=== PATIENT | male | born 1955 | race African-American/Black ===

== ENCOUNTER 2016-11-17 09:26 | Outpatient (CLI) | payer MEDICARE, MEDICAID ==
[2016-11-17 09:56] LABS: #Basophils 0.2 thou/uL (0.0-0.2); #Eosinphils 0.1 thou/uL (0.0-0.7); #Lymphocytes 2.5 thou/uL (1.20-3.40); #Monocytes 0.4 thou/uL (0.11-0.59); #Neutrophils 3.7 thou/uL (1.40-6.50); %Basophils 2.5 % (0.0-1.0); %Eosinophils 1.7 % (0.0-10.0); %Lymphocytes 35.8 % (21.0-51.0); %Monocytes 6.1 % (0.0-10.0); %Neutrophils 53.9 % (42.0-75.0); Hemoglobin 13.3 g/dL (14.0-18.0); Mean Corpuscular HGB CONC 32.6 g/dL (32.0-36.0); Mean Corpuscular Hemoglobin 26.8 pg (27.0-31.0); Mean Corpuscular Volume 82.4 fl (80.0-94.0); Platelet Count 299 thou/uL (130-400); RBC Distribution Width 13.9 % (11.5-14.5); Red Blood Cell (RBC) Count 4.95 mill/uL (4.70-6.10); White Blood Cell (WBC) Count 6.9 thou/uL (4.8-10.8)
[2016-11-17 10:23] LABS: ALT (SGPT) 20 U/L (0-55); Alkaline Phosphatase 58 U/L (40-150)
[2016-11-17 12:02] LABS: Carbon Dioxide 23 mmol/L (23-31); Chloride 104 mmol/L (98-107); Potassium 4.5 mmol/L (3.5-5.1); Sodium 139 mmol/L (136-145)
[2016-11-17 12:06] LABS: Albumin 4.2 g/dL (3.4-4.8); Anion Gap 17 mmol/L (10-20); BUN (Urea Nitrogen) 15 mg/dL (8.4-25.7); Bilirubin, Total 0.4 mg/dL (0.2-1.2); Calc. Creatinine Clearance 0 mL/min (70-130); Calcium 9.4 mg/dL (7.8-10.44); Cholesterol 168 mg/dL (< 200 Desired); Estimated GFR-MDRD Greater than 90; Globulin 3.5 g/dL (2.4-3.5); Glucose 95 mg/dL (80-115); Protein, Total 7.7 g/dL (5.8-8.1)
[2016-11-17 12:07] LABS: AST (SGOT) 33 U/L (5-34); HDL Cholesterol 40 mg/dL (>60 Neg Risk); Triglycerides 112 mg/dL (Less than 150)
[2016-11-17 12:09] LABS: Cardiac Risk 4.2 (Less than 4.5); LDL Cholesterol, Calculated 123 mg/dL
== END 2016-11-17 09:27 | disposition home or self-care (01) ==
LOC: MADLABBHPM 09:26
PROVIDERS: ATTEND Obstetrics & Gynecology
DX: E78.5 Hyperlipidemia, unspecified (principal); I10 Essential (primary) hypertension
CPT/HCPCS: 36415; 80053; 80061; 85025

== ENCOUNTER 2017-01-01 11:11 | Emergency (ER) | payer MEDICARE, MEDICAID ==
[2017-01-01] MEDS ORDERED: Amoxicillin/Potassium Clav 875 MG TAB ONE (12:22)
--- NOTE | 2017-01-01 14:35 | RAD ---
LEFT FIRST TOE THREE VIEWS HISTORY: Pain. COMPARISON: None. FINDINGS: There is mild degenerative change of the first interphalangeal joint space. No fracture. No cortic al irregularity or periosteal reaction. IMPRESSION: Mild degenerative change in the first interphalangeal joint space. POS: [facility]
== END 2017-01-01 13:38 | disposition home or self-care (01) ==
LOC: MADERS 11:11
DX: L03.032 Cellulitis of left toe (principal); L02.612 Cutaneous abscess of left foot; E78.5 Hyperlipidemia, unspecified; I10 Essential (primary) hypertension; M10.9 Gout, unspecified; Z79.899 Other long term (current) drug therapy
CPT/HCPCS: 87070; 87077; 87186; 87205

== ENCOUNTER 2019-05-16 14:30 | Outpatient (CLI) | payer MEDICARE, MEDICAID ==
[2019-05-16 14:54] LABS: ALT (SGPT) 29 U/L (8-55); AST (SGOT) 26 U/L (5-34); Albumin 4.6 g/dL (3.4-4.8); Alkaline Phosphatase 57 U/L (40-110); Anion Gap 16 mmol/L (10-20); BUN (Urea Nitrogen) 13 mg/dL (8.4-25.7); Bilirubin, Total 0.4 mg/dL (0.2-1.2); Calc. Creatinine Clearance 0 mL/min (70-130); Calcium 9.8 mg/dL (7.8-10.44); Carbon Dioxide 25 mmol/L (23-31); Chloride 102 mmol/L (98-107); Estimated GFR-MDRD 86; Globulin 4.4 g/dL (2.4-3.5); Glucose 175 mg/dL (80-115); Potassium 3.6 mmol/L (3.5-5.1); Sodium 139 mmol/L (136-145); Uric Acid 5.1 mg/dL (3.5-7.2)
[2019-05-16 14:59] LABS: Band 2 % (5-11); Hemoglobin 13.6 g/dL (14.0-18.0); Lymphocytes 26 % (21-51); MDiff Complete? YES; Mean Corpuscular HGB CONC 30.8 g/dL (32.0-36.0); Mean Corpuscular Hemoglobin 26.8 pg (27.0-31.0); Mean Corpuscular Volume 86.9 fL (78.0-98.0); Mean Platelet Volume 7.6 fL (7.4-10.4); Monocytes 4 % (0-10); Myelocyte 1 % (0-0); Neutrophil 53 % (42-75); Platelet Count 291 thou/uL (130-400); Platelet Morphology Comment Appears Adequate; RBC Distribution Width 15.5 % (11.5-14.5); RBC Morphology Normal; Reactive Lymphocytes 14 % (0-10); Red Blood Cell (RBC) Count 5.09 mill/uL (4.70-6.10); White Blood Cell (WBC) Count 7.3 thou/uL (4.8-10.8)
== END 2019-05-16 14:31 | disposition home or self-care (01) ==
LOC: MADLAB 14:30
PROVIDERS: ATTEND Family Medicine
DX: E11.9 Type 2 diabetes mellitus without complications (principal); I10 Essential (primary) hypertension; M1A.9XX0 Chronic gout, unspecified, without tophus (tophi)
CPT/HCPCS: 36415; 80053; 83036; 83880; 84550; 85025

== ENCOUNTER 2019-11-30 13:10 | Emergency (ER) | payer MEDICARE, MEDICAID ==
--- NOTE | 2019-11-30 14:33 | RAD ---
EXAM: CHEST ONE VIEW HISTORY: Nausea and vomiting. COMPARISON: 08/06/2008. FINDINGS: Cardiac silhouette is magnified by projection but does appear mildly enlarged. Stable from prior exam . Pulmonary vasculature is accentuated due to portable technique as well. Right lung apex is obscured due to patient's overlying jaw and mandible. Otherwise, no consolidation or pleural fluid is appreciated on this exam. Chest is overall stable compared to the prior exam. Mild degenerative changes seen in the spine. IMPRESSION: 1. No acute cardiopulmonary process. 2. Mild cardiomegaly.
[2019-11-30 16:38] LABS: Bilirubin Large (Negative); Blood, Urine Trace (Negative); Glucose, Urine (Dipstick) 100 mg/dL (Negative); Leukocyte Negative (Negative); Nitrite Negative (Negative); Protein, Urine (Dipstick) > or equal to 300 mg/dL (Neg-Trace); Urobilinogen > or = 8.0 mg/dL (Less than 2)
[2019-11-30] MEDS ORDERED: Ondansetron ODT 4 MG TAB ONE (16:41)
[2019-11-30 16:44] LABS: Clarity Hazy (Clear)
[2019-11-30 16:46] LABS: Bacteria/HPF 1+ HPF (None Seen); RBC/HPF 0-3 HPF (0-3); Squamous Epithelial 0-3 HPF (0-3); WBC/HPF 0-3 HPF (0-3)
[2019-11-30 17:02] LABS: #Basophils 0.1 thou/uL (0.0-0.2); #Lymphocytes 1.8 thou/uL (1.20-3.40); #Monocytes 0.4 thou/uL (0.11-0.59); #Neutrophils 6.3 thou/uL (1.40-6.50); %Eosinophils 0.2 % (0.0-10.0); %Lymphocytes 20.7 % (21.0-51.0); %Monocytes 4.2 % (0.0-10.0); %Neutrophils 73.9 % (42.0-75.0); Hemoglobin 13.5 g/dL (14.0-18.0); Mean Corpuscular HGB CONC 30.1 g/dL (32.0-36.0); Mean Corpuscular Hemoglobin 26.9 pg (27.0-31.0); Mean Corpuscular Volume 89.4 fL (78.0-98.0); Mean Platelet Volume 7.8 fL (7.4-10.4); Platelet Count 389 thou/uL (130-400); Red Blood Cell (RBC) Count 5.01 mill/uL (4.70-6.10); White Blood Cell (WBC) Count 8.5 thou/uL (4.8-10.8)
[2019-11-30 17:25] LABS: ALT (SGPT) 636 U/L (8-55); AST (SGOT) 767 U/L (5-34); Albumin 4.4 g/dL (3.4-4.8); Alkaline Phosphatase 265 U/L (40-110); Anion Gap 23 mmol/L (10-20); BUN (Urea Nitrogen) 7 mg/dL (8.4-25.7); Bilirubin, Total 2.6 mg/dL (0.2-1.2); Calc. Creatinine Clearance 0 mL/min (70-130); Calcium 9.6 mg/dL (7.8-10.44); Carbon Dioxide 20 mmol/L (23-31); Chloride 103 mmol/L (98-107); Estimated GFR-MDRD Greater than 90; Globulin 4.9 g/dL (2.4-3.5); Glucose 168 mg/dL (80-115); Lipase 194 U/L (8-78); Potassium 3.9 mmol/L (3.5-5.1); Protein, Total 9.3 g/dL (5.8-8.1); Sodium 142 mmol/L (136-145)
[2019-11-30] MEDS ORDERED: Lidocaine 1% 20 ML MDV ONE (18:11)
[2019-11-30] MEDS ORDERED: cefTRIAXone\\ROCEPHIN 1 GM VIAL ONE (18:11)
[2019-11-30] MEDS ORDERED: Sodium Chloride 0.9% 1,000 ML ONE (18:55)
== END 2019-11-30 19:19 | disposition short-term general hospital (02) ==
LOC: MADERS 13:10
DX: R74.0 Nonspecific elevation of levels of transaminase and lactic acid dehydrogenase [LDH] (principal); R00.0 Tachycardia, unspecified; M10.9 Gout, unspecified; E78.5 Hyperlipidemia, unspecified; E78.00 Pure hypercholesterolemia, unspecified; I10 Essential (primary) hypertension; Z79.899 Other long term (current) drug therapy
CPT/HCPCS: 71045; 80053; 81003; 81015; 83690; 84484; 85025; 93005; 96360; 96372; J0696; J2001; J7050; Q0162

== ENCOUNTER 2021-04-24 10:10 | Outpatient (CLI) | payer MEDICARE, MEDICAID | END 2021-04-24 10:11 | disposition home or self-care (01) | LOC: MADLAB 10:10 | PROVIDERS: ATTEND Urology | DX: C61 Malignant neoplasm of prostate (principal) | CPT/HCPCS: 36415; 84153 ==

== ENCOUNTER 2021-04-24 18:37 | Emergency (ER) | payer MEDICARE, MEDICAID ==
[~2021-04-24 18:37] MED LIST: Sodium Chloride 0.9% 100 ML BAG ONE
[2021-04-24 19:34] LABS: #Basophils 0.2 thou/uL (0.0-0.2); #Lymphocytes 1.4 thou/uL (1.20-3.40); #Monocytes 0.3 thou/uL (0.11-0.59); #Neutrophils 8.1 thou/uL (1.40-6.50); %Basophils 1.5 % (0.0-1.0); %Monocytes 3.4 % (0.0-10.0); %Neutrophils 81.1 % (42.0-75.0); Hemoglobin 13.2 g/dL (14.0-18.0); Mean Corpuscular HGB CONC 30.8 g/dL (32.0-36.0); Mean Corpuscular Hemoglobin 27.5 pg (27.0-31.0); Mean Corpuscular Volume 89.3 fL (78.0-98.0); Mean Platelet Volume 7.7 fL (7.4-10.4); Platelet Count 298 thou/uL (130-400); RBC Distribution Width 15.3 % (11.5-14.5); Red Blood Cell (RBC) Count 4.78 mill/uL (4.70-6.10)
[2021-04-24 19:51] LABS: ALT (SGPT) 55 U/L (8-55); AST (SGOT) 109 U/L (5-34); Albumin 3.7 g/dL (3.4-4.8); Alkaline Phosphatase 65 U/L (40-110); Anion Gap 24 mmol/L (10-20); BUN (Urea Nitrogen) 21 mg/dL (8.4-25.7); Bilirubin, Total 0.5 mg/dL (0.2-1.2); Calc. Creatinine Clearance 0 mL/min (70-130); Calcium 9.5 mg/dL (7.8-10.44); Carbon Dioxide 20 mmol/L (23-31); Chloride 102 mmol/L (98-107); Globulin 5.4 g/dL (2.4-3.5); Glucose 147 mg/dL (80-115); Magnesium 2.2 mg/dL (1.6-2.6); Protein, Total 9.1 g/dL (5.8-8.1); Sodium 142 mmol/L (136-145)
[2021-04-24 20:08] LABS: CKMB 0.7 ng/mL (0-6.6)
[2021-04-24] MEDS ORDERED: Cefepime 2 GM VIAL ONE (21:19)
[2021-04-24] MEDS ORDERED: Vancomycin HCl 500 MG VIAL ONE (21:19)
[2021-04-24] MEDS ORDERED: Sodium Chloride 0.9% 1,000 ML ONE (21:19)
== END 2021-04-24 22:23 | disposition short-term general hospital (02) ==
LOC: MADERS 18:37
DX: U07.1 COVID-19 (principal); J12.82 Pneumonia due to coronavirus disease 2019; R06.03 Acute respiratory distress; R09.02 Hypoxemia; E78.5 Hyperlipidemia, unspecified; E78.00 Pure hypercholesterolemia, unspecified; I10 Essential (primary) hypertension; Z79.82 Long term (current) use of aspirin; Z79.899 Other long term (current) drug therapy
CPT/HCPCS: 71250; 80053; 82553; 83605; 83735; 83880; 84484; 85025; 87040; 93005; 94760; 96365; 96375; J0692; J3370; J3490; J7050